=== PATIENT | male | born 2005 | race Caucasian/White ===

== ENCOUNTER 2025-09-02 02:43 | Emergency (ER) | payer BC, SELFPAY ==
[2025-09-02 02:53] VITALS: BP 117/71; PULSE 104; RESP 22; TEMP 36.6; O2SAT 97; BMI 21.8
[2025-09-02 02:55] VITALS: BP 117/71; PULSE 104; RESP 22; TEMP 36.6; O2SAT 97
[2025-09-02 03:05] LABS: MANUAL DIFF FLAG NO
[2025-09-02 03:06] LABS: Hematocrit 44.9 % (42.0-52.0); Hemoglobin 15.6 g/dl (14.0-18.0); Imm Gran Abs Auto 0.08 X10*3/uL (0.00-0.03); Imm Gran Pct Auto 0.5 % (0.0-0.4); Lymphocytes Absolute Auto 1.5 X10*3/uL (1.2-4.9); Mean Corpuscular HGB Conc 34.7 g/dl (31.0-36.0); Mean Corpuscular Hemoglobin 29.0 pg (27.0-33.0); Mean Corpuscular Volume 83.5 fL (80.0-98.0); NRBC Abs Auto 0.000 X10*3/uL (0.0-0.012); NRBC Pct Auto 0.0 /100WBC (0.0-0.2); Platelet Count 260 X10*3/uL (160-400); Red Blood Count 5.38 X10*6/uL (4.60-5.80); White Blood Count 16.9 X10*3/uL (4.8-10.8)
[2025-09-02 03:20] LABS: Alanine Aminotransferase 83 U/L (0-40); Albumin Level 5.3 g/dL (3.5-5.0); Alkaline Phosphatase 87 U/L (39-117); Anion Gap 21 (12-20); Aspartate Amino Transferase 50 U/L (5-37); Blood Urea Nitrogen 14 mg/dL (9-16); Calcium 9.7 mg/dL (8.4-10.2); Carbon Dioxide 20 mmol/L (22-29); Chloride 106 mmol/L (96-108); Creatinine Clr Calc Pharmacy 125.4; Estimated Glomerular Filt Rate > 60; Lipase 18 U/L (8-78); Magnesium 1.7 mg/dL (1.6-2.6); Potassium 4.2 mmol/L (3.3-5.1); Sodium 143 mmol/L (135-145); Total Protein 8.0 g/dL (6.5-8.0)
[2025-09-02] MEDS: Lactated Ringers 1,000 ML 999 ML IV (03:34)
[2025-09-02 03:44] LABS: Resp Syncy Virus RNA Qual PCR NEGATIVE (Negative); SARS COV2 PCR INHOUSE NEGATIVE (Negative)
[2025-09-02 04:00] VITALS: PULSE 91; RESP 19; O2SAT 96
--- OUTSIDE RECORDS SUMMARY | 2025-09-02 04:48 | XMS_ITS | Encounter Summary ---
Author Organization [facility] Address [address] [place] [address] Phone Care Team Providers Care Cephalometric Tracer Name Role Phone Ryan Palacios MD Primary Care Provider [phone] Encounter Details Date Type Department Care Team (Late st Contact Info) Description 12/22/2012 Documentation [facility] [place] [address] [place] [address] Family Medicine, Physician [address] [place] [address] Social History Tobacco Use Types Packs/Day Years Used Date Smoking Tobacco: Never Assessed Sex and Gender Information Value Date Recorded Sex Assigned at Not on file Legal Sex Male 4:52 PM EDT Gender Identity Male 08/06/2020 7:49 AM EST Sexual Orientation Not on file documented as of this encounter Plan of Treatment Not on file documented as of this encounter Visit Diagnoses Not on filedocumented in this encounter Care Teams Cephalometric Tracer Relationship Specialty Start Date End Date Ryan Palacios MD [address] [place] [address] [place] [address] PCP - General Pediatrics 12/04/17 documented as of this encounter
--- OUTSIDE RECORDS SUMMARY | 2025-09-02 04:48 | XMS_ITS | Encounter Summary ---
Author Organization [facility] Address [address] [place] [address] Phone Care Team Providers Care Linen Supervisor Name Role Phone Ryan Palacios MD Primary Care Provider [phone] Encounter Details Date Type Department Care Team (Late st Contact Info) Description 12/29/2010 Documentation [facility] [place] Family Medicine [address] [place] [address] Family Medicine, Physician [address] [place] [address] Social History Tobacco Use Types Packs/Day Years [...] on filedocumented in this encounter Care Teams Linen Supervisor Relationship Specialty Start Date End Date Ryan Palacios MD [address] [place] [address] [place] [address] PCP - General Pediatrics 12/04/17 documented as of this encounter
--- OUTSIDE RECORDS SUMMARY | 2025-09-02 04:48 | XMS_ITS | Encounter Summary ---
Author Organization [facility] Address [address] [place] [address] Phone Care Team Providers Care Ambulance Driver Paramedic Name Role Phone Ryan Palacios MD Primary Care Provider [phone] Encounter Details Date Type Department Care Team (Late st Contact Info) Description 08/25/2011 Documentation [facility] [place] [address] [place] [address] Family Medicine, Physician [address] [place] [address] Social History Tobacco Use Types Packs/Day Years [...] on filedocumented in this encounter Care Teams Ambulance Driver Paramedic Relationship Specialty Start Date End Date Ryan Palacios MD [address] [place] [address] [place] [address] PCP - General Pediatrics 12/04/17 documented as of this encounter
--- OUTSIDE RECORDS SUMMARY | 2025-09-02 04:48 | XMS_ITS | Encounter Summary ---
Author Organization [facility] Address [address] [place] [address] Phone Care Team Providers Care Ladle Puller Name Role Phone Ryan Palacios MD Primary Care Provider [phone] Encounter Details Date Type Department Care Team (Late st Contact Info) Description 12/30/2010 Documentation [facility] [place] [address] [place] [address] Family Medicine, Physician [address] [place] [address] Social History Tobacco Use Types Packs/Day Years [...] on filedocumented in this encounter Care Teams Ladle Puller Relationship Specialty Start Date End Date Ryan Palacios MD [address] [place] [address] [place] [address] PCP - General Pediatrics 12/04/17 documented as of this encounter
--- OUTSIDE RECORDS SUMMARY | 2025-09-02 04:48 | XMS_ITS | Encounter Summary ---
Author Organization [facility] Address [address] [place] [address] Phone Care Team Providers Care Nurse Head Name Role Phone Ryan Palacios MD Primary Care Provider [phone] Encounter Details Date Type Department Care Team (Late st Contact Info) Description 12/23/[address] [facility] [place] Family Medicine [address] [place] [address] Family Medicine, Physician [address] [place] [address] Social History Tobacco Use Types Packs/Day Years [...] on filedocumented in this encounter Care Teams Nurse Head Relationship Specialty Start Date End Date Ryan Palacios MD [address] [place] [address] [place] [address] PCP - General Pediatrics 12/04/17 documented as of this encounter
--- OUTSIDE RECORDS SUMMARY | 2025-09-02 04:48 | XMS_ITS | Encounter Summary ---
Author Organization [facility] Address [address] [place] [address] Phone Care Team Providers Care Program Strategist Name Role Phone Ryan Palacios MD Primary Care Provider [phone] Encounter Details Date Type Department Care Team (Late st Contact Info) Description 08/17/2012 Documentation [facility] [place] Family Medicine [address] [place] [address] Family Medicine, Physician [address] [place] [address] Social History Tobacco Use Types Packs/Day Years [...] on filedocumented in this encounter Care Teams Program Strategist Relationship Specialty Start Date End Date Ryan Palacios MD [address] [place] [address] [place] [address] PCP - General Pediatrics 12/04/17 documented as of this encounter
--- OUTSIDE RECORDS SUMMARY | 2025-09-02 04:48 | XMS_ITS | Encounter Summary ---
Author Organization [facility] Address [address] [place] [address] Phone Care Team Providers Care Quality And Reliability Engineer Name Role Phone Ryan Palacios MD Primary Care Provider Encounter Details Date Type Department Care Team (Late st Contact Info) Description 12/20/2012 Documentation [facility] [place] Family Medicine [address] [place] [address] Family Medicine, Physician [address] [place] [address] Social History Tobacco Use Types Packs/Day Years [...] on filedocumented in this encounter Care Teams Quality And Reliability Engineer Relationship Specialty Start Date End Date Ryan Palacios MD [address] [place] [address] [place] [address] PCP - General Pediatrics 12/04/17 documented as of this encounter
--- OUTSIDE RECORDS SUMMARY | 2025-09-02 04:48 | XMS_ITS | Encounter Summary ---
Author Organization [facility] Address [address] [place] [address] Phone Care Team Providers Care Nuclear Power Plant Engineer Name Role Phone Ryan Palacios MD Primary Care Provider [phone] Encounter Details Date Type Department Care Team (Late st Contact Info) Description 11/14/2009 Documentation [facility] [place] [address] [place] [address] Family Medicine, Physician [address] [place] [address] Social History Tobacco Use Types Packs/Day Years [...] on filedocumented in this encounter Care Teams Nuclear Power Plant Engineer Relationship Specialty Start Date End Date Ryan Palacios MD [address] [place] [address] [place] [address] PCP - General Pediatrics 12/04/17 documented as of this encounter
--- OUTSIDE RECORDS SUMMARY | 2025-09-02 04:48 | XMS_ITS | Encounter Summary ---
Author Organization [facility] Address [address] [place] [address] Phone Care Team Providers Care Call Center Recruiter Name Role Phone Ryan Palacios MD Primary Care Provider [phone] Encounter Details Date Type Department Care Team (Late st Contact Info) Description 04/22/2017 Conversion Encounter [facility] [place] [address] [place] [address] Social History Tobacco Use Types Packs/Day Years [...] on filedocumented in this encounter Care Teams Call Center Recruiter Relationship Specialty Start Date End Date Ryan Palacios MD [address] [place] [address] PCP - General Pediatrics 12/04/17 documented as of this encounter
--- OUTSIDE RECORDS SUMMARY | 2025-09-02 04:48 | XMS_ITS | Clinical Summary ---
Author Organization [facility] Address [address] [place] [address] Phone Care Team Providers Care Delivery Architect Name Role Phone Ryan Palacios MD Primary Care Provider Allergies Active Allergy Reactions Criticality Noted Date Comments Amoxicillin Medications cetirizine 10 MG tabletIndication s:Folliculitis Take 1 tablet (10 mg total) by mouth 2 (two) times a day as needed (rash). 60 tablet 06/15/2024 Active Active Problems Problem Noted Date Diagnosed Date Other viral warts 02/29/2024 Overview (02/29/2024): Pathophysiology of warts discussed. Pared wart down then frozen with liquid N2 gun for 2-3 minutes Assessment & Plan (02/29/2024 3:41 PM EDT): Leave alone, use the power of your mind, after a month you can use duofilm at night and duct tape in the day, return if needed. Anxiety disorder 08/06/2020 Overview (02/29/2024): Started on fluoxetine 10 mg daily in 09/2020. Dose was soon increased to 20 mg, which patient remained on until 01/2022. Due to increased anxiety symptoms, dose increased to 30 mg in 01/2022. Patient felt dull and unmotivated with increase in fluoxetine to 30 mg. Switched to sertraline 25 mg on 04/02/22. Dose of sertraline increased to 50 mg in 05/2022. 02/27: anxiety discussed. Made warm handoff to Angelina Assessment & Plan (02/29/2024 3:37 PM EDT): To see Angelina Allergic rhinitis 08/16/2012 Overview (12/27/2017): outgrowing allergies. Did not use flonase this past year. Resolved Problems Problem Noted Date Diagnosed Date Resolved Date Precordial pain 02/29/2024 04/28/2024 Overview (02/29/2024): Though symptoms like these might be suspicious for CV disease in a middle aged or elderly adult, they are most likely anxiety related. He has no signs of pulmonary disease, no risk factors for CV disease and no signs of myocarditis. Does have some positive family hx. Assessment & Plan (02/29/2024 3:40 PM EDT): Will get tests to rule out cardiac disease which I HIGHLY doubt. See Angelina to help with acne. Do some mediatation breathing with an jazmyne like YellowKornera or Insight Timer. Influenza vaccination declined 06/05/2021 07/06/2025 Overview (06/05/2021): Declined 06/05/21. Encounters Date Type Department Care Team Description 07/18/2025 Telephone [facility] [address] [place] [address] Gabriela Jett ADHD resources 07/06/2025 3:30 PM EDT Office Visit [facility] [address] [place] [address] Ryan Palacios MD Well adult exam (Primary Dx); BMI (body mass index), pediatric, 5% to less than 85% for age; Dietary counseling; Exercise counseling; Screening for chlamydial disease; Attention disturbance from Last 3 Months Immunizations Immunization Administration Dates Next Due DTaP / Hep B / IPV 2005,2005, 005 DTaP 5 07/10/2009,09/27/2006 HPV Vaccine 9 Valent 04/28/2018,04/26/2017 Hep A, ped/adol 05/31/2007,09/27/2006 Hep B, ped/adol 2005 Hib (HbOC) 09/27/2006,2005 Hib (PRP-T) 2005,2005 IPV 07/10/2009 Influenza, injectable, quadr ivalent, preservative free 05/27/2020 MMR 07/10/2009,05/26/2006 Meningococcal Conj (Menactra) MCV4P 06/05/2021,0 04/26/2017 Pneumococcal Conjugate 09/27/2006,2005,2005,07/20 Tdap 04/26/2017 Varicella 07/10/2009,05/26/2006 Family History Medical History Relation Name Comments Migraines Father Sully Scott No Known Problems Mother Silvia Uribe Relation Name Status Comments Father Sully Scott Alive Father: Alive a nd well, Migraines Father's Sister Paternal aun t: Cancer -breast Maternal Grandfather Materna l grandfather: Sudden /[place] under age 55, Maternal Grandmother Materna l grandmother: Cancer -breast, Mother Silvia Uribe Alive Mother: Alive and well Other Family history of Hyperlipidemia Paternal Grandfather Alive Paternal Grandmother Alive Sister 1 Kathy Scott Alive Sister: Aliv e and well, Alive and well Sister 2 Nicci Scott Alive Sister: Alive and well, Alive and well Social History Tobacco Use Types Packs/Day Years Used Date Smoking Tobacco: Never Tobacco Cessation:Counseling Given: Not Answered Alcohol Use Standard Drinks/Week Comments Never 0 (1 standard drink = 0.6 oz pur e alcohol) Hunger/Food Answer Date Recorded In the last 12 months, did y ou or your family ever eat less than you felt you should because there wasn't enough money for food? No 07/06/2025 Stable Housing Answer Date Recorded Are you worried that in the next 2 months you may not have stable housing? No 07/06/2025 Transportation Concerns Answer Date Rec orded In the last 12 months, have you or your family ever had to go without healthcare because you didn't have a way to get there? No 07/06/2025 Hazards in Home Answer Date Recorded Think about the place you li ve. Do you have problems with any of the following? Pests (mice or roaches), mold, no/not working smoke detectors, water leaks, no window guards. No 2024 Financing Utilities Answer Date Recorde d In the last 12 months, has t he electric, gas, oil, or water company threatened to shut off your services in your home? No 07/06/2025 Safety at Home Answer Date Recorded Are you or your family worried about feeling saf e in your home? No 07/06/2025 Outside Support Answer Date Recorded Do you feel that you need mo re support from other people or programs to help you care for yourself or your family? No 07/06/2025 Understanding Health Concerns Answer Da te Recorded Do you need help understandi ng your or your child's healthcare needs (diagnosis, medications, plan, etc.)? No 07/06/2025 Financing Health Concerns Answer Date R ecorded In the last 12 months, was t here a time when your child needed to see a doctor or get medications or supplies but could not because of cost? No 07/06/2025 Missing School or Work Answer Date Jesus rded Did you or your child miss s chool or work because of a health problem that could have been avoided? No 07/06/2025 Child Education Answer Date Recorded Do you have concerns about y our/your child's learning or behavior in school, preschool, or daycare? No 07/06/2025 Sex and Gender Information Value Date Recorded Sex Assigned at Not on file Legal Sex Male 4:52 PM EDT Gender Identity Male 08/06/2020 7:49 AM EST Sexual Orientation Not on file Last Filed Vital Signs Vital Sign Reading Time Taken Comments Blood Pressure 121/80 07/06/2025 3:23 PM EDT Pulse 70 07/06/2025 3:23 PM EDT Temperature 35.9 C (96.6 F) 06/15/2024 2:50 PM EDT Respiratory Rate - - Oxygen Saturation 99% 02/29/2024 2:37 PM EDT Inhaled Oxygen Concentration - - Weight 70 kg (154 lb 6.4 oz) 07/06/2025 3:23 PM EDT Height 177 cm (5' 9.69 ) 07/06/2025 3:23 PM EDT Body Mass Index 22.35 07/06/2025 3:23 PM EDT Plan of Treatment Health Maintenance Due Date Last Done Comments HIV Screening 2020 Men B Vaccine (1 of 2 - Standard) 2021 Hepatitis C Screening 2023 Influenza Vaccines (#1) 2025 05/27/2020 COVID-19 Vaccine (1 - 2024-2 6 season) 2025 DTaP,Tdap,and Td Vaccines (7 - Td or Tdap) 04/26/2027 04/26/2017, 07/10/2009, 09/27/2006, Additional history exists Hepatitis B Vaccines Completed 2005, 2005, 2005, Additional history exists HIB Vaccines Completed 09/27/2006, 11/04, 2005, Additional history exists Pneumococcal Vaccine Completed 09/27/2006, 2005, 2005, Additional history exists Hepatitis A Vaccines Completed 05/31/2007, 09/27/19 07 IPV Vaccines Completed 07/10/2009, 11/04, 2005, Additional history exists MMR Vaccines Completed 07/10/2009, 05/26/2006 Varicella Vaccines Completed 07/10/2009, 05/26/2006 HPV Vaccines Completed 04/28/2018, 04/26/2017 Meningococcal Vaccine Completed 06/05/2021, 017 Procedures * Due to [place]atur[place] law, this organization might not be sharing sensitive test results. Procedure Name Priority Date/Time Associated Diagnosis Comments POCT CHLAMYDIA AND GONORRHEA, AMPLIFIED Routine 07/06/2025 4:59 PM EDT Screening for chlamydial disease BRIEF BEHAVIORAL ASSESSMENT - NORMAL(PSC,PHQ9,VAND ERBILT,ETC) Routine 07/06/2025 3:31 PM EDT Well adult exam from Last 3 Months Results * Due to [place] law, this organization might not be sharing sensitive test results. * POCT Chlamydia and Gonorrhea Amplified (07/06/2025 4:59 PM EDT) Chlamydia, POC NotDetected [facility] Gonorrhea, POC NotDetected [facility] Urine (Urine) 07/06/2025 4:5 9 PM EDT 07/06/2025 4:59 PM EDT Narrative [facility] - 07/06/2025 4:59 PM EDT [id number] ([id number]), [facility] Automobile Mechanic Apprentice: [email or web address] Testing Performed at [facility] [address] [place] [address] Corridor Redevelopment Manager: Rosi Obrien DO CLIA: [id number] Ryan Palacios MD POINT OF CARE TEST ORDERABLES Fi nal Result [facility] [address] [place] [address] from Last 3 Months Insurance [facility] BLUE CARD OUT OF STATE [facility] Address: [facility] [id number] [place] [address] Care Teams Delivery Architect Relationship Specialty Start Date End Date Ryan Palacios MD [address] [facility] [place] [address] PCP - General Pediatrics 12/04/17
--- OUTSIDE RECORDS SUMMARY | 2025-09-02 04:48 | XMS_ITS | Encounter Summary ---
Author Organization [facility] Address [address] [place] [address] Phone Care Team Providers Care Antique Dealer Name Role Phone Ryan Palacios MD Primary Care Provider [phone] Encounter Details Date Type Department Care Team (Late st Contact Info) Description 12/20/2012 Documentation [facility] [place] [address] [place] [address] Family Medicine, Physician [address] [place] [address] Social History Tobacco Use Types Packs/Day Years [...] on filedocumented in this encounter Care Teams Antique Dealer Relationship Specialty Start Date End Date Ryan Palacios MD [address] [place] [address] [place] [address] PCP - General Pediatrics 12/04/17 documented as of this encounter
--- OUTSIDE RECORDS SUMMARY | 2025-09-02 04:48 | XMS_ITS | Encounter Summary ---
Author Organization [facility] Address [address] [place] [address] Phone Care Team Providers Care Frame And Scrap Crusher Name Role Phone Ryan Palacios MD Primary Care Provider [phone] Reason for Visit * Reason Comments Med Refill Encounter Details Date Type Department Care Team ([facility] st Contact Info) Description 01/17/2022 Refill [facility] [address] [place] [address] Gertrude Salinas MD [address] [facility] [address] [place] [address] Anxiety disorder, unspecified type Social History Tobacco Use Types Packs/Day Years Used Date Smoking Tobacco: Never Assessed Hunger/Food Answer Date Recorded In the last 12 months, did y ou or your family ever eat less than you felt you should because there wasn't enough money for food? No 05/01/2019 Stable Housing Answer Date Recorded Are you worried that in the next 2 months you may not have stable housing? No 05/01/2019 Transportation Concerns Answer Date Rec orded In the last 12 months, have you or your family ever had to go without healthcare because you didn't have a way to get there? No 05/01/2019 Hazards in Home Answer Date Recorded Think about the place you li ve. Do you have problems with any of the following? Pests (mice or roaches), mold, no/not working smoke detectors, water leaks, no window guards. No 2018 Financing Utilities Answer Date Recorde d In the last 12 months, has t he electric, gas, oil, or water company threatened to shut off your services in your home? No 05/01/2019 Safety at Home Answer Date Recorded Are you or your family worried about feeling saf e in your home? No 05/01/2019 Outside Support Answer Date Recorded Do you feel that you need mo re support from other people or programs to help you care for yourself or your family? No 05/01/2019 Understanding Health Concerns Answer Da te Recorded Do you need help understandi ng your or your child's healthcare needs (diagnosis, medications, plan, etc.)? No 05/01/2019 Financing Health Concerns Answer Date R ecorded In the last 12 months, was t here a time when your child needed to see a doctor or get medications or supplies but could not because of cost? No 05/01/2019 Missing School or Work Answer Date Jesus rded Did you or your child miss s chool or work because of a health problem that could have been avoided? No 05/01/2019 Sex and Gender Information Value Date Recorded Sex Assigned at Not on file Legal Sex Male 4:52 PM EDT Gender Identity Male 08/06/2020 7:49 AM EST Sexual Orientation Not on file documented as of this encounter Miscellaneous Notes * Telephone Encounter - Ryan Palacios MD - 01/19/2022 4:59 PM EDT I sent 30 day Rx's with 1 refill for both fluoxetine 20 mg and fluoxetine 10 mg (for total of 30 mgQD) last week. * Telephone Encounter - Carol Orozco LPN - 01/19/2022 3:10 PM EDT Pharm requesting refill fluoxetine 20 mg. EH documented in this encounter Plan of Treatment Not on file documented as of this encounter Visit Diagnoses Diagnosis Anxiety disorder, unspecified type documented in this encounter Care Teams Frame And Scrap Crusher Relationship Specialty Start Date End Date Ryan Palacios MD [address] [place] [address] [place] [address] PCP - General Pediatrics 12/04/17 documented as of this encounter
--- OUTSIDE RECORDS SUMMARY | 2025-09-02 04:48 | XMS_ITS | Encounter Summary ---
Author Organization [facility] Address [address] [place] [address] Phone Care Team Providers Care Sustainability Specialist Name Role Phone Ryan Palacios MD Primary Care Provider [phone] Encounter Details Date Type Department Care Team (Late st Contact Info) Description 04/27/2017 Documentation [facility] [place] Family Medicine [address] [place] [address] Family Medicine, Physician [address] [place] [address] Social History Tobacco Use Types Packs/Day Years [...] on filedocumented in this encounter Care Teams Sustainability Specialist Relationship Specialty Start Date End Date Ryan Palacios MD [address] [place] [address] [place] [address] PCP - General Pediatrics 12/04/17 documented as of this encounter
--- OUTSIDE RECORDS SUMMARY | 2025-09-02 04:48 | XMS_ITS | Encounter Summary ---
Author Organization [facility] Address [address] [place] [address] Phone Care Team Providers Care Financial Advocate Name Role Phone Ryan Palacios MD Primary Care Provider [phone] Encounter Details Date Type Department Care Team (Late st Contact Info) Description 04/28/2017 Documentation [facility] [place] [address] [place] [address] Family Medicine, Physician [address] [place] [address] Social History Tobacco Use Types Packs/Day Years [...] on filedocumented in this encounter Care Teams Financial Advocate Relationship Specialty Start Date End Date Ryan Palacios MD [address] [place] [address] [place] [address] PCP - General Pediatrics 12/04/17 documented as of this encounter
--- OUTSIDE RECORDS SUMMARY | 2025-09-02 04:48 | XMS_ITS | Encounter Summary ---
Author Organization [facility] Address [address] [place] [address] Phone Care Team Providers Care Vegetable Washing Machine Operator Name Role Phone Ryan Palacios MD Primary Care Provider Encounter Details Date Type Department Care Team (Late st Contact Info) Description 12/06/2014 Documentation [facility] [place] [address] [place] [address] Family Medicine, Physician [address] [place] [address] Social History Tobacco Use Types Packs/Day Years [...] on filedocumented in this encounter Care Teams Vegetable Washing Machine Operator Relationship Specialty Start Date End Date Ryan Palacios MD [address] [place] [address] [place] [address] PCP - General Pediatrics 12/04/17 documented as of this encounter
--- OUTSIDE RECORDS SUMMARY | 2025-09-02 04:48 | XMS_ITS | Encounter Summary ---
Author Organization [facility] Address [address] [place] [address] Phone Care Team Providers Care Supervisor Insecticide Name Role Phone Ryan Palacios MD Primary Care Provider [phone] Reason for Visit * Reason Comments Med Refill Encounter Details Date Type Department Care Team ([facility] st Contact Info) Description 10/16/2021 Refill [facility] - [address] [address] Ryan Palacios MD [address] [place], [place] [id number] Anxiety disorder, unspecified type Social History Tobacco [...] encounter Miscellaneous Notes * Telephone Encounter - Riddhi Becerra - 10/17/2021 1:18 PM EST L/m for parent to cb and schedule appt. * Telephone Encounter - Onelia Bear MA - 10/16/2021 4:34 PM EST Pharm refill request for Fluoxetine. Last well visit 05/2021. Pt needs an apt in November for a med check. Will send refill to covering provider and message to lockstitch front maker to book a med check. documented in this encounter Plan of Treatment Not on file documented as of this encounter Visit Diagnoses Diagnosis Anxiety disorder, unspecified type documented in this encounter Care Teams Supervisor Insecticide Relationship Specialty Start Date End Date Ryan Palacios MD [address] [place] [address] [place] [address] PCP - General Pediatrics 12/04/17 documented as of this encounter
--- OUTSIDE RECORDS SUMMARY | 2025-09-02 04:48 | XMS_ITS | Encounter Summary ---
Author Organization [facility] Address [address] [place] [address] Phone Care Team Providers Care Channel Rougher Name Role Phone Ryan Palacios MD Primary Care Provider [phone] Encounter Details Date Type Department Care Team (Late st Contact Info) Description 09/08/2011 Documentation [facility] [place] Family Medicine [address] [place] [address] Family Medicine, Physician [address] [place] [address] Social History Tobacco Use Types Packs/Day Years [...] on filedocumented in this encounter Care Teams Channel Rougher Relationship Specialty Start Date End Date Ryan Palacios MD [address] [place] [address] [place] [address] PCP - General Pediatrics 12/04/17 documented as of this encounter
--- OUTSIDE RECORDS SUMMARY | 2025-09-02 04:48 | XMS_ITS | Encounter Summary ---
Author Organization [facility] Address [address] [place] [address] Phone Care Team Providers Care Commercial Green Building Designer Name Role Phone Ryan Palacios MD Primary Care Provider [phone] Reason for Visit * Reason Comments Med Refill Encounter Details Date Type Department Care Team (Late st Contact Info) Description 12/12/2021 Refill [facility] - [address] [address] Ryan Palacios MD [address] [place], [place] [phone] Anxiety disorder, unspecified type Social History Tobacco [...] encounter Miscellaneous Notes * Telephone Encounter - Gertrude Salinas MD - 12/12/2021 8:50 PM EDT Med check pending later this month, RX for 30 tabs no refills sent * Telephone Encounter - Kevin Cheng RN - 12/12/2021 4:35 PM EDT [id number] Pharm requesting med refill of Fluoxetine 20mg. Last PE 06/05/21. Call placed to mom regarding need for med check. Mom transferred to front office assistant to schedule med check. documented in this encounter Plan of Treatment Not on file documented as of this encounter Visit Diagnoses Diagnosis Anxiety disorder, unspecified type documented in this encounter Care Teams Commercial Green Building Designer Relationship Specialty Start Date End Date Ryan Palacios MD [address] [place], [place] [address], [place] [address] PCP - General Pediatrics 12/04/17 documented as of this encounter
--- OUTSIDE RECORDS SUMMARY | 2025-09-02 04:48 | XMS_ITS | Encounter Summary ---
Author Organization [facility] Address [address] [place] [address] Phone Care Team Providers Care Integration Solution Architect Name Role Phone Ryan Palacios MD Primary Care Provider [phone] Encounter Details Date Type Department Care Team (Late st Contact Info) Description 11/04/2015 Documentation [facility] [place] Family Medicine [address] [place] [address] Family Medicine, Physician [address] [place] [address] Social History Tobacco Use Types Packs/Day Years [...] on filedocumented in this encounter Care Teams Integration Solution Architect Relationship Specialty Start Date End Date Ryan Palacios MD [address] [place] [address] [place] [address] PCP - General Pediatrics 12/04/17 documented as of this encounter
--- OUTSIDE RECORDS SUMMARY | 2025-09-02 04:48 | XMS_ITS | Encounter Summary ---
Author Organization [facility] Address [address] [place] [address] Phone Care Team Providers Care Library Monitor Name Role Phone Ryan Palacios MD Primary Care Provider [phone] Reason for Visit * Reason Comments Med Refill Encounter Details Date Type Department Care Team ([facility] st Contact Info) Description 07/12/2021 Refill [facility] - [address] [address] Ryan Palacios MD [address] [place], [place] [phone] Anxiety disorder, unspecified type Social History Tobacco [...] 05/01/2019 Missing School or Work Answer Date Jeuss rded Did you or your child miss [...] encounter Miscellaneous Notes * Telephone Encounter - Onelia Bear MA - 07/14/2021 11:15 AM EST Pharm refill for Fluoxetine. PE current and Med check due in November. Message to for refill documented in this encounter Plan of Treatment Not on file documented as of this encounter Visit Diagnoses Diagnosis Anxiety disorder, unspecified type documented in this encounter Care Teams Library Monitor Relationship Specialty Start Date End Date Ryan Palacios MD [address] [place] [address] [place] [address] PCP - General Pediatrics 12/04/17 documented as of this encounter
--- OUTSIDE RECORDS SUMMARY | 2025-09-02 04:48 | XMS_ITS | Encounter Summary ---
Author Organization [facility] Address [address] [place] [address] Phone Care Team Providers Care Mathematics Professor Name Role Phone Ryan Palacios MD Primary Care Provider [phone] Encounter Details Date Type Department Care Team (Late st Contact Info) Description 03/30/2010 Documentation [facility] [place] [address] [place] [address] Family Medicine, Physician [address] [place] [address] Social History Tobacco Use Types Packs/Day Years [...] on filedocumented in this encounter Care Teams Mathematics Professor Relationship Specialty Start Date End Date Ryan Palacios MD [address] [place] [address] [place] [address] PCP - General Pediatrics 12/04/17 documented as of this encounter
--- OUTSIDE RECORDS SUMMARY | 2025-09-02 04:48 | XMS_ITS | Encounter Summary ---
Author Organization [facility] Address [address] [place] [address] Phone Care Team Providers Care Stone Chimney Mason Name Role Phone Ryan Palacios MD Primary Care Provider [phone] Encounter Details Date Type Department Care Team (Late st Contact Info) Description 01/08/2016 Documentation [facility] [place] Family Medicine [address] [place] [address] Family Medicine, Physician [address] [place] [address] Social History Tobacco Use Types Packs/Day Years [...] on filedocumented in this encounter Care Teams Stone Chimney Mason Relationship Specialty Start Date End Date Ryan Palacios MD [address] [place] [address] [place] [address] PCP - General Pediatrics 12/04/17 documented as of this encounter
--- OUTSIDE RECORDS SUMMARY | 2025-09-02 04:48 | XMS_ITS | Encounter Summary ---
Author Organization [facility] Address [address] [place] [address] Phone Care Team Providers Care Sea Captain Name Role Phone Ryan Palacios MD Primary Care Provider [phone] Encounter Details Date Type Department Care Team (Late st Contact Info) Description 12/20/2012 Documentation [facility] [place] [address] [place] [address] Family Medicine, Physician [address] [place] [address] Social History Tobacco Use Types Packs/Day Years [...] on filedocumented in this encounter Care Teams Sea Captain Relationship Specialty Start Date End Date Ryan Palacios MD [address] [place] [address] [place] [address] PCP - General Pediatrics 12/04/17 documented as of this encounter
--- OUTSIDE RECORDS SUMMARY | 2025-09-02 04:48 | XMS_ITS | Encounter Summary ---
Author Organization [facility] Address [address] [place] [address] Phone Care Team Providers Care Utilization Specialist Name Role Phone Ryan Palacios MD Primary Care Provider [phone] Encounter Details Date Type Department Care Team (Late st Contact Info) Description 11/21/2013 Documentation [facility] [place] Family Medicine [address] [place] [address] Family Medicine, Physician [address] [place] [address] Social History Tobacco Use Types Packs/Day Years [...] on filedocumented in this encounter Care Teams Utilization Specialist Relationship Specialty Start Date End Date Ryan Palacios MD [address] [place] [address] [place] [address] PCP - General Pediatrics 12/04/17 documented as of this encounter
--- OUTSIDE RECORDS SUMMARY | 2025-09-02 04:48 | XMS_ITS | Encounter Summary ---
Author Organization [facility] Address [address] [place] [address] Phone Care Team Providers Care Research Center Partner Name Role Phone Ryan Palacios MD Primary Care Provider [phone] Encounter Details Date Type Department Care Team (Late st Contact Info) Description 07/24/2011 Documentation [facility] [place] Family Medicine [address] [place] [address] Family Medicine, Physician [address] [place] [address] Social History Tobacco Use Types Packs/Day Years [...] on filedocumented in this encounter Care Teams Research Center Partner Relationship Specialty Start Date End Date Ryan Palacios MD [address] [place] [address] [place] [address] PCP - General Pediatrics 12/04/17 documented as of this encounter
[2025-09-02 05:50] VITALS: PULSE 80; RESP 18; O2SAT 97
--- NOTE | 2025-09-02 06:22 | ED.NAVMDI ---
HPI - Nausea/Vomiting/Diarrhea General Chief complaint: Nausea/Vomiting/Diarrhea Stated complaint: NAUSEA AND VOMITING 2XHOURS Time Seen by Provider: 09/02/25 03:16 Source: patient, family, EMS and RN notes reviewed Mode of arrival: EMS Limitations: no limitations History of Present Illness ED Provider: Dr. Isabela Arenas HPI Narrative: Dieudonne is a young adult male who went to bed feeling well and awoke abruptly around 01:00 this morning with shaking, intense nausea, and forceful vomiting. He simultaneously felt an urgent need to defecate but was initially unable to pass stool. With repeated straining he experienced worsening nausea and vomited multiple times. He subsequently developed large-volume watery diarrhea; the most recent bowel movement was approximately two hours prior to ED evaluation. He reports that the severe abdominal ?spasmodic?/churning pain present before the diarrhea improved after the stool passed. He notes no prior similar episodes. Patient confirms still has appendix and gallbladder. Possible exposure includes eating chicken yesterday that others in the household did not consume; however, no one else in the household is ill. He endorses two beers last night and typically drinks 4?5 beers daily. He uses marijuana ?sometimes? but not yesterday. He denies fever today, and denies chest, back, or testicular pain. Leg discomfort/cramping is attributed to forceful vomiting. No known sick contacts. Since arrival to the ED he has received IV fluids and anti-emetic therapy with improvement in nausea and cessation of active vomiting. Related Data Previous Rx's ?Medication ?Instructions ?Recorded dicyclomine 20 mg tablet 20 mg PO TID #10 tabs 09/02/25 dicyclomine 20 mg tablet 20 mg PO TID #10 tabs 09/02/25 ondansetron 4 mg disintegrating 4 mg PO Q8H PRN nausea and 09/02/25 tablet vomiting #10 tabs ondansetron 4 mg disintegrating 4 mg PO Q8H PRN nausea and 09/02/25 tablet vomiting #10 tabs Allergies Allergy/AdvReac Type Severity Reaction Status Date / Time No Known Allergies Allergy Verified 09/02/25 02:54 Review of Systems Review of Systems: as per HPI, full review of systems performed and negative but for the above mentioned pertinent positives and negatives. [facility] Social History Social History (Reviewed 09/09/25 @ 14:52 by SONIA Ramirez Alcohol intake: current Smoked in Last 30 Days: Yes Use of substances other than those prescribed or required for medical reasons: No Advance Directives: No Advance Directives Information Provided: Yes Physical Exam Exam: Exam: GENERAL: Ill-Appearing, appears uncomfortable, actively and loudly vomiting on arrival to the ED. SKIN: Normal skin color for ethnicity, warm, dry, no rashes noted. HEENT:? Normocephalic, atraumatic, no stridor, dry mucous membranes, dentition intact, EOMI. NECK: Soft, supple, full ROM, midline structures nontender, no step-offs, no deformities, no lymphadenopathy. CHEST: Heart regular tachycardia, no murmurs, symmetric chest rise and fall. PULMONARY: Clear to auscultation bilaterally, diminished at the bases, no labored breathing, no wheezes/rhales/rhonchi. ABDOMINAL: Soft, nondistended, nontender, positive bowel sounds in all quadrants. : Deferred. MUSCULOSKELETAL: Normal tone, full range of motion, no deformities, no peripheral edema. NEURO: Alert and oriented x3, CN II through XII intact, equal strength and sensation bilateral upper and lower extremities, no focal neurologic deficits.? PSYCHIATRIC: Flat affect, fluid speech, good eye contact and appropriate demeanor. Vital Signs: Vital Signs: Last Vital Signs Temp 0 F L 09/02/25 07:44 Pulse 80 09/02/25 07:44 Resp 18 09/02/25 07:44 BP 110/66 09/02/25 07:44 Pulse Ox 97 09/02/25 07:44 O2 Del Method Room Air 09/02/25 07:44 BMI result Body Mass Index 21.8 Medications Administered Discontinued Medications Generic Name Dose Route Start Last Admin Trade Name Freq PRN Reason Stop Dose Admin Dicyclomine HCl 20 mg 09/02/25 06:15 09/02/25 06:44 Dicyclomine Hcl 10 Mg Capsule PO 09/02/25 06:16 20 mg ONCE ONE Administration Diphenhydramine HCl 50 mg 09/02/25 03:16 09/02/25 03:29 Diphenhydramine Hcl 50 Mg/Ml Vial IVPUSH 09/02/25 03:17 50 mg ONCE ONE Administration Haloperidol Lactate 5 mg 09/02/25 03:16 09/02/25 03:29 Haloperidol Lactate 5 Mg/Ml Vial IVPUSH 09/02/25 03:17 5 mg STAT STA Administration Lactated Ringer's 1,000 mls @ 999 mls/hr 09/02/25 03:16 09/02/25 05:00 Lr IV 09/02/25 04:16 Infused .Q1H1M ONE Infusion Medical Decision Making Medical Decision Making [facility] Narrative: Emergency Department Course - IV anti-emetics administered on arrival with resolution of active vomiting. - IV fluid bolus given; blood pressure and heart rate remained stable with improvement in tachycardia. - Blood work reviewed; electrolytes and liver function are good. - Additional medication ordered for abdominal cramping pain. - Tolerated oral intake prior to d/c Assessment & Plan Diagnosis: Acute viral gastroenteritis (likely norovirus) with associated nausea, vomiting, and watery diarrhea. Plan: Supportive care: continue oral hydration aggressively at home. Prescriptions provided for anti-emetics and abdominal cramping as discussed. Infection control education: highly contagious ? strict hand hygiene, close toilet lid before flushing, clean household surfaces with bleach. Return precautions reviewed: return to ED for inability to tolerate oral intake, signs of dehydration, fever, bloody stool, or vomiting blood. Disposition Discharged home. Prescriptions and instructions provided as discussed. Social History Alcohol: Drinks approximately 4?5 beers daily; consumed ?a couple beers? last night. Marijuana: Occasional use; none yesterday. Differential Diagnosis Differential Diagnoses: The differential diagnosis associated with the presentation includes Differential diagnosis includes surgical emergency such as obstruction, enteritis, hyperglycemia, acidosis, food or drug ingestion, pancreatitis, CVA, allergic reaction such as anaphylaxis, cannabis hyperemesis syndrome or cyclic vomiting syndrome, among many others.? Admission/Observation Consideration of admission/observation: Escalation of care including admission/observation considered Lab Data [facility] Lab Attestation statement: I reviewed the patient's lab results. 09/02/25 03:01 09/02/25 03:01 Labs: Lab Results 09/02/25 09/02/25 Range/Units 03:01 03:04 WBC 16.9 H (4.8-10.8) X10*3/uL RBC 5.38 (4.60-5.80) X10*6/uL Hgb 15.6 (14.0-18.0) g/dl Hct 44.9 (42.0-52.0) % MCV 83.5 (80.0-98.0) fL MCH 29.0 (27.0-33.0) pg MCHC 34.7 (31.0-36.0) g/dl RDW 12.8 (11.0-16.0) % Plt Count 260 (160-400) X10*3/uL MPV 9.4 (9.4-12.4) fL Immature Gran % (Auto) 0.5 H (0.0-0.4) % Neut % (Auto) 84.3 H (45-73) % Lymph % (Auto) 9.0 L (20-40) % Pen[place] % (Auto) 5.7 (2-11) % Eos % (Auto) 0.3 (0-4) % Baso % (Auto) 0.2 (0-2) % Lymph # (Auto) 1.5 (1.2-4.9) X10*3/uL [place] # (Auto) 1.0 (0.1-1.2) X10*3/uL Eos # (Auto) 0.1 (0.0-0.4) X10*3/uL Baso # (Auto) 0.0 (0.0-0.2) X10*3/uL Abs Immat Gran (auto) 0.08 H (0.00-0.03) X10*3/uL Absolute Neuts (auto) 14.2 H (2.0-8.3) x10*3/uL Absolute Nucleated RBC 0.000 (0.0-0.012) X10*3/uL Nucleated RBC % (auto) 0.0 (0.0-0.2) /100WBC Sodium 143 (135-145) mmol/L Potassium 4.2 (3.3-5.1) mmol/L Chloride 106 (96-108) mmol/L Carbon Dioxide 20 L (22-29) mmol/L Anion Gap 21 H (12-20) BUN 14 (9-16) mg/dL Creatinine 0.94 (0.5-1.4) mg/dL Estim Creat Clear Calc 125.4 Estimated GFR > 60 Random Glucose 122 H (60-115) mg/dL Calcium 9.7 (8.4-10.2) mg/dL Magnesium 1.7 (1.6-2.6) mg/dL Total Bilirubin 0.4 (0.0-1.0) mg/dL AST 50 H (5-37) U/L ALT 83 H (0-40) U/L Alkaline Phosphatase 87 (39-117) U/L Total Protein 8.0 (6.5-8.0) g/dL Albumin 5.3 H (3.5-5.0) g/dL Lipase 18 (8-78) U/L Ethyl Alcohol 88 mg/dL Influenza Type A (PCR) NEGATIVE (Negative) Influenza Type B (PCR) NEGATIVE (Negative) RSV RNA Qual (PCR) NEGATIVE (Negative) SARS-CoV-2 RNA (RT-PCR) NEGATIVE (Negative) Independent Historian Clinical information obtained from an independent historian. History obtained from or confirmed by: Spouse, Parent and EMS External Record Review External record reviewed: Inpatient record Prescription Management I considered prescription management with: Other (antiemetic) Social Determinants Patient?s care significantly limited by Social Determinants of Health including: Other Social Determinant of Health Discharge Plan Discharge Clinical Impression: Gastroenteritis Patient Disposition: Home, Self-Care Instructions: Gastroenteritis (ED) Additional Instructions: Your vomiting and diarrhea is consistent with a stomach virus (the stomach flu). Your lab work is reassuring. The treatment for this is supportive care. Use dicyclomine for abdominal cramping. Use Zofran for nausea as needed. Try to drink as much fluid as possible over the next several days to stay well hydrated. Return to the emergency department sooner if you develop any new or worsening symptoms including: Worsening abdominal pain or vomiting despite medication, fevers greater than 100?, bloody stool or vomit, any new symptom that concerns you. Call 911 with any medical emergency. Prescriptions: New dicyclomine 20 mg tablet 20 mg PO TID Qty: 10 0RF ondansetron 4 mg tablet,disintegrating 4 mg PO Q8H PRN (Reason: nausea and vomiting) Qty: 10 0RF ondansetron 4 mg tablet,disintegrating 4 mg PO Q8H PRN (Reason: nausea and vomiting) Qty: 10 0RF dicyclomine 20 mg tablet 20 mg PO TID Qty: 10 0RF Interventions: ED Discharge Assessment Last Done: 09/02/25 07:44 Discharge Date/Time: 12/28/25 07:46 Print Language: Kyrgyz
[2025-09-02 07:44] VITALS: BP 110/66; PULSE 80; RESP 18; TEMP -17.7; TEMP 0; O2SAT 97
== END 2025-09-02 07:46 | disposition home or self-care (01) ==
PROVIDERS: Emergency Provider Emergency Medicine
DX: K52.9 Noninfective gastroenteritis and colitis, unspecified (principal); R11.2 Nausea with vomiting, unspecified; Z03.818 Encounter for observation for suspected exposure to other biological agents ruled out
CPT/HCPCS: 36415; 80053; 80307; 83690; 83735; 85025; 87637; 96361; 96374; 96375; 99284; J1200; J1630; J7120